=== PATIENT | female | born 1975 | race African-American/Black ===

== ENCOUNTER 2017-02-13 11:06 | Emergency (ER) | payer BC, OTHER ==
[2017-02-13] MEDS ORDERED: Acetaminophen 500 MG TAB ONE (12:18)
== END 2017-02-13 12:25 | disposition home or self-care (01) ==
LOC: NAV ERS 11:06
DX: J11.1 Influenza due to unidentified influenza virus with other respiratory manifestations (principal); B34.9 Viral infection, unspecified; E11.9 Type 2 diabetes mellitus without complications; E78.5 Hyperlipidemia, unspecified; F32.9 Major depressive disorder, single episode, unspecified; F41.9 Anxiety disorder, unspecified; F90.9 Attention-deficit hyperactivity disorder, unspecified type; F43.10 Post-traumatic stress disorder, unspecified; Z79.899 Other long term (current) drug therapy
CPT/HCPCS: 87081; 87430; 99283

== ENCOUNTER 2024-01-18 18:09 | Emergency (ER) | payer MEDICAID, SELFPAY ==
[2024-01-18] MEDS ORDERED: HYDROcodone/Acetaminophen 5/325 mg Tablet ONE (19:00)
[2024-01-18] MEDS ORDERED: diphenhydrAMINE 25 MG CAP ONE (19:00)
[2024-01-18] MEDS ORDERED: AMOXicillin 250 MG CAP ONE (19:01)
== END 2024-01-18 19:10 | disposition home or self-care (01) ==
LOC: NAV ERS 18:09
DX: K02.9 Dental caries, unspecified (principal); E11.9 Type 2 diabetes mellitus without complications; Z79.85 Long-term (current) use of injectable non-insulin antidiabetic drugs; Z79.899 Other long term (current) drug therapy
CPT/HCPCS: 99282

== ENCOUNTER 2024-01-21 20:48 | Emergency (ER) | payer SELFPAY ==
[2024-01-21] MEDS ORDERED: Ketorolac Tromethamine 60 MG/2 ML VIAL ONE (22:09)
[2024-01-21] MEDS ORDERED: HYDROcodone/Acetaminophen 10/325 mg Tablet ONE (22:51)
== END 2024-01-21 23:00 | disposition home or self-care (01) ==
LOC: NAV ERS 20:48
DX: K04.7 Periapical abscess without sinus (principal); E11.9 Type 2 diabetes mellitus without complications; F90.9 Attention-deficit hyperactivity disorder, unspecified type; E78.5 Hyperlipidemia, unspecified; Z79.85 Long-term (current) use of injectable non-insulin antidiabetic drugs; Z79.899 Other long term (current) drug therapy
CPT/HCPCS: 96372; 99282; J1885

== ENCOUNTER 2024-12-17 10:04 | Emergency (ER) | payer SELFPAY ==
[2024-12-17] MEDS ORDERED: Ketorolac Tromethamine 30 MG (1 mL) VIAL ONE (11:14)
== END 2024-12-17 11:35 | disposition home or self-care (01) ==
LOC: NAV ERS 10:04
DX: M25.462 Effusion, left knee (principal); G89.29 Other chronic pain; M25.562 Pain in left knee; M25.561 Pain in right knee; E11.9 Type 2 diabetes mellitus without complications; Z79.85 Long-term (current) use of injectable non-insulin antidiabetic drugs
CPT/HCPCS: 96372; 99283; J1885

== ENCOUNTER 2025-03-04 00:38 | Emergency (ER) | payer SELFPAY ==
[2025-03-04] MEDS ORDERED: Amoxicillin/Potassium Clav 875 MG TAB ONE (01:10)
== END 2025-03-04 01:38 | disposition home or self-care (01) ==
LOC: NAV ERS 00:38
DX: K08.89 Other specified disorders of teeth and supporting structures (principal); E11.9 Type 2 diabetes mellitus without complications
CPT/HCPCS: 64400; J3490

== ENCOUNTER 2025-03-04 20:57 | Emergency (ER) | payer SELFPAY ==
[2025-03-04] MEDS ORDERED: Lidocaine/Transparent Dressing 1 EACH KIT ONE (22:21)
== END 2025-03-04 22:54 | disposition home or self-care (01) ==
LOC: NAV ERS 20:57
DX: K04.4 Acute apical periodontitis of pulpal origin (principal); K03.81 Cracked tooth; E11.9 Type 2 diabetes mellitus without complications; Z79.899 Other long term (current) drug therapy
CPT/HCPCS: 64400; J3490